=== PATIENT | female | born 1940 | race Caucasian/White ===

== ENCOUNTER 2016-12-04 19:27 | Inpatient (IN) | payer MEDICARE, OTHER ==
[~2016-12-04] VITALS: Ht 160 cm; Wt 77.4 kg
[~2016-12-04 19:27] MED LIST: ASAEC PO; LEVO125T2 PO; METO25T PO; NITR0.4T SL; TOPR25T PO; ZES5 PO
[2016-12-04 19:32] VITALS: BP 138/65; PULSE 67; RESP 18; O2SAT 96
[2016-12-04 20:22] LABS: BASOPHILS % (AUTO) 1.2 % (0-3); EOSINOPHILS % (AUTO) 0.2 % (0-5); Mean Corpuscular Hemoglobin 29.9 pg (27.0-35.0); Mean Corpuscular Volume 95.5 fL (81-100); NEUTROPHILS % (AUTO) 46.4 % (40-74); Platelet Count 173 bil/L (150-400)
--- NOTE | 2016-12-04 20:36 | ED.REPORT ---
HPI-Dyspnea / Wheezing Date of Service Dec 04, 2016 ED Provider: Taurus Coelho DO Pt is a 76 y.o. female with a hx of A-fin and HTN who presents to the ED from c/o SOB onset yesterday. Per pt was 87% on room air. Pt reports associated mild chest pain. She denies fever, chills, nausea, vomiting, and diarrhea. She reports that she is a current smoker. She denies a hx of COPD. Pt reports taking ASA daily. Nursing Notes Stated Complaint: SHORT OF BREATH Chief Complaint: Respiratory Complaints Nursing Notes Reviewed: Yes Allergies: Coded Allergies: Sulfa (Sulfonamide Antibiotics) (Verified Allergy, Severe, Anaphylaxis, 01/04/16) Scheduled Aspirin (Aspirin) 325 Mg Tablet 325 MG PO DAILY Atenolol (Atenolol) 25 Mg Tablet 25 MG PO QAM Atenolol (Atenolol) 25 Mg Tablet 50 MG PO HS Levothyroxine (Levothyroxine) 100 Mcg Tablet 100 MCG PO QAM Morphine Sulfate ER (MS Contin) 30 Mg Tablet.er 30 MG PO TID Nicotine 21 mg/24 hr Patch (Nicotine 21 mg/24 hr Patch) 1 Each Patch.dysq 1 PATCH TRANSDERM DAILY Scheduled PRN Nitroglycerin SL (Nitroglycerin SL) 0.4 Mg Tab.subl 0.4 MG SL Q5MIN PRN PRN For Chest Pain General Time Seen by MD: 20:35 Chief Complaint Shortness of breath Hx Obtained From: Patient Arrived By: Walk-in Sudden in Onset?: Yes Onset Occurred: Yesterday Symptom Duration: Since onset Location: : Chest left: Chest right Quality: Painful Severity: Current: Mild Past Medical History Past Medical History Spinal Stenosis Afib HTN Mitral Valve Prolapse Reports: Hypertension Reports: Atrial fibrillation, Thyroid disease Past Surgical History Breast biopsy Reports: Hysterectomy, Tonsillectomy Family History Reports: Diabetes mellitus, Stroke Smoking History Current Every Day Smoker Social History Alcohol Use: Denies alcohol use Drug Use: Denies drug use Other Social History: Good social support, , Local resident Ambulatory Status Independent Review of Systems Constitutional: Denies: Chills, Fever Respiratory: Reports: Shortness of breath Cardiovascular: Reports: Chest pain Complete sys rev & neg: except as marked. GI: Denies: Diarrhea, Nausea, Vomiting Physical Exam Initial Vital Signs Vital Signs (First) Date Time Temp Pulse Resp B/P Pulse Ox O2 Delivery O2 Flow Rate FiO2 12/04/16 19:32 37.5 67 18 138/65 96 Nasal Cannula 2 Initial VS: Reviewed Head / Eyes: Atraumatic, Normocephalic Abdomen / GI: No distention Extremities: Vascular intact, Neuro intact Skin: Warm, Dry, No cyanosis Neurologic: Alert, Oriented, Nonfocal Psychiatric: Mood/affect normal, Behavior normal, Normal thought content General/Constitutional: Awake, Alert, Well appearing, Well hydrated, Not toxic appearing Neck: Atraumatic Respiratory / Chest: Atraumatic Resp Distress / Stridor: Positive: Resp distress mild Coarse wheezes Poor air intake Hypoxic 92% on 2L Cardiovascular: Heart rate NL, Peripheral circulation NL Trace edema left lower extremity Good perfusion Interpretation & Diagnostics Lab Results Interpretation Result Diagram: 12/04/16200412/04/162004 Test 12/04/16 20:05 White Blood Count 4.9th/mm3 (3.8-10.1) Red Blood Count 4.71mil/mm3 (3.90-5.20) Hemoglobin 14.1g/dL (12.0-15.6) Hematocrit 45.0% (35.0-46.0) Mean Corpuscular Volume 95.5fL (81-100) Mean Corpuscular Hemoglobin 29.9pg (27.0-35.0) Mean Corpuscular Hemoglobin Concent 31.3% (32.0-37.0) Red Cell Distribution Width 14.5% (12.3-15.4) Platelet Count 173bil/L (150-400) Neutrophils (%) (Auto) 46.4% (40-74) Lymphocytes (%) (Auto) 36.0% (14-46) Monocytes (%) (Auto) 16.0% (4-12) Eosinophils (%) (Auto) 0.2% (0-5) Basophils (%) (Auto) 1.2% (0-3) Hold Purple Top Tube Received (Received) D-Dimer 3.0mg/L (<0.50) Hold Blue Top Tube Received (Received) Hold Urine Received (Received) Sodium Level 139mEq/L (134-144) Potassium Level 4.7mEq/L (3.5-5.2) Chloride Level 101mEq/L (97-108) Carbon Dioxide Level 23mmol/L (18-29) Blood Urea Nitrogen 21mg/dL (8-27) Creatinine 1.14mg/dL (0.57-1.00) Estimat Glomerular Filtration Rate 67mL/min (>59) Glucose Level 108mg/dL (60-99) Calcium Level 8.8mg/dL (8.5-10.1) Magnesium Level 2.3mg/dL (1.6-2.6) Total Bilirubin 0.2mg/dL (0.0-1.2) Aspartate Amino Transf (AST/SGOT) 25U/L (0-50) Alanine Aminotransferase (ALT/SGPT) 15U/L (0-32) Alkaline Phosphatase 109U/L (25-165) Troponin T < 0.010ug/L (0.0-0.011) Pro-B-Type Natriuretic Peptide 1858pg/mL (0-738) Total Protein 7.5g/dL (6.4-8.4) Albumin 3.9g/dL (3.4-5.0) Procalcitonin 0.11ng/mL (0.00-0.08) Hold [place] Top Tube Received (Received) Hold Jacinto Top Tube Received (Received) ECG Interpretation ECG Interpretation: PVC No acute ST changes Time: 20:39 Interpreted by: ED physician Normal ECG Interpretation: Normal rate (61), Normal sinus rhythm X-Ray Chest Interpretation Chest Xray Interpretation: IMPRESSION: Acute disease is not appreciated. No change is seen in the chest since previous x-ray of 01/04/16. Dictated by: Natanael Laureano M.D. on 12/04/2016 at 19:08 Approved by: Natanael Laureano M.D. on 12/04/2016 at 19:09 CT Chest Interpretation IMPRESSION: No acute changes are seen in the lungs. No evidence for pulmonary embolus is seen. No acute abnormality seen of the aorta or great vessels. Dictated by: Natanael Laureano M.D. on 12/04/2016 at 21:50 Approved by: Natanael Laureano M.D. on 12/04/2016 at 21:54 Re-Eval/Medical Decision Med Decision/Clinical Course 76-year-old chain-smoker presents in moderate respiratory distress with diffuse expiratory wheeze. Pulmonary emboli was ruled out. Pneumonia seemed unlikely but she is coughing. I gave her Rocephin steroids and nebs. She was still requiring supplemental oxygen so she will be admitted to the hospital. Re-Evaluation/Progress : Time of Eval: 22:46 Re-Evaluation/Progress Note: Pt rechecked. Discussed plan for admit, pt understands and agrees with plan. Consultation : Referral / Consult Name: Paul Lopez MD Consulted With: Hospitalist Call Returned at: 22:42 Grinder Gear: Will see patient, Agrees with eval, Agrees with plan, Accepts admit Note: Discussed pt condition. Accepts admit Discharge & Departure Impression: Primary Impression: Respiratory distress Additional Impressions: Bronchospasm Acute exacerbation of chronic obstructive pulmonary disease (COPD) Disposition: ADMITTED TO HOSPITAL Discharge Condition All VS Reviewed: Yes Condition: Improved Referrals: Mio Gary MD (PCP) Rex Attestation Portions of this note were transcribed by Jane Brooks. I, Dr. Coelho personally performed the history, physical exam and medical decision-making; I reviewed and confirmed the accuracy of the information in the transcribed note. Signed by : Rex Lilly, 12/04/16 and 2336. copies to: Mio Gary MD, Todd P DO Dec 04, 2016 20:36 JANE BROOKS Dec 04, 2016 20:51
[2016-12-04] MEDS ORDERED: MethylprednisoLONE Sodium Succinate 62.5 mg/mL 2 mL Inj IVPUSH ONE (20:40)
[2016-12-04] MEDS ORDERED: Albuterol-Ipratropium 3 mL Inhalation Solution NEB ONE (20:40)
[2016-12-04 20:51] LABS: Magnesium 2.3 mg/dL (1.6-2.6)
[2016-12-04 21:00] LABS: TROPONIN T < 0.010 ug/L (0.0-0.011)
[2016-12-04 21:03] VITALS: BP 168/71; PULSE 73; RESP 16; O2SAT 93
[2016-12-04 21:23] VITALS: PULSE 60; RESP 20; O2SAT 96
--- NOTE | 2016-12-04 21:55 | DRSVH ---
PROCEDURE: CT ANGIO CHEST PULMONARY EMBOLISM ([id number]) INDICATIONS: hypoxia, dyspnea, elevated ddimer, normal xray TECHNIQUE: After the administration of intravenous contrast, 2 mm thick sections acquired from the pulmonary api jazmin to the posterior costophrenic angles. 3-dimensional maximum intensity projection (MIP) coronal a nd sagittal reformats were then acquired through the thorax. For radiation dose reduction, the follo wing was used: automated exposure control, adjustment of mA and/or kV according to patient size. COMPARISON: [facility], , XR CHEST 2VW, 12/04/2016, 18:39. FINDINGS: Image quality: Good Pulmonary arteries: Pulmonary arteries are normal in size, and demonstrate no intraluminal filling d efects to suggest central pulmonary embolism. Lungs and pleura: Lungs are clear. No pleural effusions or pneumothorax. Central and peripheral ai rways are patent. Mediastinum: Heart size is normal, without pericardial effusion. No mediastinal or hilar adenopathy . Thoracic aorta is normal in caliber and enhancement. Esophagus is normal in caliber, without hiat al hernia. Bones and chest wall: No suspicious bony lesions. Ribs and thoracic spine appear intact throughout. Thyroid gland is within normal limits.. No axillary or supraclavicular adenopathy. Abdomen: Visualized upper abdominal solid organs appear normal in the early arterial phase of enhanc ement. IMPRESSION: No acute changes are seen in the lungs. No evidence for pulmonary embolus is seen. No acute abnormality seen of the aorta or great vessels. Dictated by: Natanael Laureano M.D. on 12/04/2016 at 21:50 Approved by: Natanael Laureano M.D. on 12/04/2016 at 21:54
[2016-12-04] MEDS ORDERED: cefTRIAXone Inj 2,000 MG in Dextrose 5% Minibag Plus 50 ML IV ONE (22:05)
[2016-12-04] MEDS ORDERED: Polyethylene Glycol (PEG) 17 Gm Powder PO PRN (22:50)
[2016-12-04] MEDS ORDERED: Ondansetron 2 mg/mL 2 mL Inj IVPUSH PRN (22:50)
[2016-12-04] MEDS ORDERED: Alum-Mag Hydrox-Simeth 30 mL Suspension PO PRN (22:50)
[2016-12-04 23:01] VITALS: BP 150/66; PULSE 78; RESP 16; O2SAT 92
[2016-12-04] MEDS ORDERED: ATEN25TA PO ×2 (23:16)
[2016-12-04] MEDS ORDERED: MS30TCR PO (23:16)
[2016-12-04] MEDS ORDERED: ASPI325T32 PO (23:16)
[2016-12-04] MEDS ORDERED: LEVO100T6 PO (23:16)
[2016-12-04] MEDS ORDERED: NITR0.4T6 SL (23:17)
[2016-12-04] MEDS ORDERED: NICO1PAT16 TRANSDERM (23:18)
[2016-12-05] VITALS (14 sets, daily range): BP systolic 120–170; BP diastolic 61–98; PULSE 53–92; RESP 17–21; O2SAT 89–93
[2016-12-05] MEDS: Albuterol-Ipratropium 3 mL Inhalation Solution NEB SCH ×6 (00:30→20:01)
--- NOTE | 2016-12-05 01:23 | PCM.HPMED ---
Subjective Date of Service Dec 04, 2016 Primary Provider: Admitting Physician: Primary Care Physician: Mio Gary MD Attending Physician: Admit Status: From the Emergency Department, Full Admit, Remote Telemetry Chief Complaint: Acute shortness of breathe History of Present Illness: Umm Ortega is a 76 y.o. female with Paroxysmal Atrial Fibrillation, Hypothyroid and Hypertension who presents to [facility] Emergency department from Urgent Care with complaints of shortness of breathe Patient reported the shortness of breathe started 2 days ago. Described as difficulty inhaling and pushing air out. Not much difference with movement ( constant) but associated with a dry cough with pleuritic chest pain. Denies any fever or chills. No sick contacts or travel. At the Urgent Care today: 87% on room air. She is a current smoker she does not have a diagnosis of COPD. She had a Pulmonary function test that showed interstitial lung disease Case discussed with Dr Coelho, plan to admit due to persistent symptoms. Neb treatment and Solu-Medrol IV given Review of Systems: Pertinent positives as noted in HPI. All other systems were reviewed and are negative Allergies Coded Allergies: Sulfa (Sulfonamide Antibiotics) (Verified Allergy, Severe, Anaphylaxis, 01/04/16) Home Medications From Tayo Corey. [id number] 1940 12/04/2016 05:50 PM 10/01 aspirin 325 mg tablet take 1 tablet (325MG) by oral route every day atenolol 25 mg tablet Take two tablets (50 mg) in the AM and one tablet (25 mg) in the PM. This medication replaces metoprolol coenzyme Q10 (ubiquinol) 100 mg capsule Fish Oil 720 mg-1,200 mg capsule liquid formula hydrocodone 5 mg-acetaminophen 325 mg tablet take 1 tablet by oral route every 6 hours as needed for pain MS Contin 30 mg tablet,extended release take 1 tablet (30MG) by oral route three times a day MS Contin 30 mg tablet,extended release take 1 tablet (30MG) by oral route three times a day Synthroid 100 mcg tablet take 1 tablet by oral route every day Ventolin HFA 90 mcg/actuation aerosol inhaler inhale 2 puff by inhalation route every 4 - 6 hours as needed PMH Hypertension. Hypothyroidism. Lumbar spinal stenosis Hypertension Paroxysmal atrial fibrillation Carotid bruit Interstitial lung disease Chronic pain syndrome on narcotics . Surgical History Cardiac cath 2012 Hysterectomy. Benign breast tumor removal. Tonsillectomy Family History Father had Stroke and Hypertension Mother had Diabetes and Dementia Social History Hx Alcohol Use: Yes (occasional) Hx Substance Use: No Hx Tobacco Use: Yes (40 pack-yr history) Smoking Status: Current Every Day Smoker Exam Vital Signs Vital Sign - Last Date Time Temp Pulse Resp B/P Pulse Ox O2 Delivery O2 Flow Rate FiO2 12/04/16 21:23 60 20 96 Nasal Cannula 2 12/04/16 21:03 168/71 12/04/16 19:32 37.5 Exam General: Alert, Oriented X3, Cooperative, No acute Distress Eyes: PERRLA, Scleral Anicteric Mouth: Mouth Normal, Mucous Membranes Moist/[place] Neck: Supple, no Thyromegaly, trachea central. Chest & Lungs: Clear to auscultation & percussion, No adventitious breath sounds, no crackles, mild wheeze Cardiovascular: Normal S1, Normal S2, No Murmurs/Rubs/Gallops, Regular Rate/ Rhythm, (No JVD, no peripheral edema) Pulses: Radial (present and equal), Dorsalis Pedi (present and equal) Abdomen: Soft, Non-tender, Non-distended, Normoactive bowel tones. Musculoskeletal: Unremarkable. Normal range of motion, no swollen or erythematous joints Extremities: No edema, no cyanosis, no clubbing. Skin: No rashes. Warm and dry, no erythematous areas Neurological: Grossly neurologically intact, Normal Speech, Sensation Intact Lymphatic: Lymph nodes Cervical and Axillary not palpable. Lab and Diagnostics Labs Laboratory Tests Test 12/04/16 20:05 White Blood Count 4.9th/mm3 (3.8-10.1) Red Blood Count 4.71mil/mm3 (3.90-5.20) Hemoglobin 14.1g/dL (12.0-15.6) Hematocrit 45.0% (35.0-46.0) Mean Corpuscular Volume 95.5fL (81-100) Mean Corpuscular Hemoglobin 29.9pg (27.0-35.0) Mean Corpuscular Hemoglobin Concent 31.3% (32.0-37.0) Red Cell Distribution Width 14.5% (12.3-15.4) Platelet Count 173bil/L (150-400) Neutrophils (%) (Auto) 46.4% (40-74) Lymphocytes (%) (Auto) 36.0% (14-46) Monocytes (%) (Auto) 16.0% (4-12) Eosinophils (%) (Auto) 0.2% (0-5) Basophils (%) (Auto) 1.2% (0-3) Hold Purple Top Tube Received (Received) D-Dimer 3.0mg/L (<0.50) Hold Blue Top Tube Received (Received) Hold Urine Received (Received) Sodium Level 139mEq/L (134-144) Potassium Level 4.7mEq/L (3.5-5.2) Chloride Level 101mEq/L (97-108) Carbon Dioxide Level 23mmol/L (18-29) Blood Urea Nitrogen 21mg/dL (8-27) Creatinine 1.14mg/dL (0.57-1.00) Estimat Glomerular Filtration Rate 67mL/min (>59) Glucose Level 108mg/dL (60-99) Calcium Level 8.8mg/dL (8.5-10.1) Magnesium Level 2.3mg/dL (1.6-2.6) Total Bilirubin 0.2mg/dL (0.0-1.2) Aspartate Amino Transf (AST/SGOT) 25U/L (0-50) Alanine Aminotransferase (ALT/SGPT) 15U/L (0-32) Alkaline Phosphatase 109U/L (25-165) Troponin T < 0.010ug/L (0.0-0.011) Pro-B-Type Natriuretic Peptide 1858pg/mL (0-738) Total Protein 7.5g/dL (6.4-8.4) Albumin 3.9g/dL (3.4-5.0) Hold [place] Top Tube Received (Received) Hold Jacinto Top Tube Received (Received) Result Diagram: 12/04/16200412/04/162004 X-Rays, CTs and MRIs CT ANGIO CHEST PULMONARY EMBOLISM 12/04 IMPRESSION: No acute changes are seen in the lungs. No evidence for pulmonary embolus is seen. No acute abnormality seen of the aorta or great vessels. Dictated by: Natanael Laureano M.D. on 12/04/2016 at 21:50 Approved by: Natanael Laureano M.D. on 12/04/2016 at 21:54 Assessment & Plan Umm Ortega is a 76 y.o. female with Paroxysmal Atrial Fibrillation, Hypothyroid and Hypertension who presents to [facility] Emergency department from Urgent Care with complaints of shortness of breathe 1. Acute dyspnea due to Possible COPD exacerbation. Present on admission. Under therapy Likely due to a Viral respiratory infection - continue oxygen supplementation - scheduled DuoNeb treatments - steroids tapered to Prednisone 40 mg daily - Azithromycin 500 mg PO daily as procalcitonin elevated - recommend a repeat Pulmonary function test as outpatient 2. Hypertension Presumed stable but currently elevated - continue Atenolol 50 mg AM then 25 mg PM 3. Hypothyroidism - continue Synthroid 100 mcg daily 4. Nicotine dependence Cessation discussed and encouraged - Nicotine patch will be ordered on request 5. Chronic pain syndrome with narcotic dependence - continuing Morphine 30 mg tid and Hydrocodone/APAP prn - Acetaminophen as needed for mild pain/fever/headache - Bowel regimen as needed - Antiemetic as needed Patient admitted under inpatient status with expected length of stay > 2 midnights for severity of present symptoms, complexities of treatment plan and risk for adverse event . Resuscitation Status: CPR: Attempt Resuscitation Paul Lopez MD Dec 04, 2016 22:52
[2016-12-05] MEDS: Heparin 5,000 Unit/mL Inj SUBQ SCH ×3 (01:41→17:13)
[2016-12-05] MEDS: HYDROcodone-APAP 5-325 mg Tablet PO PRN ×4 (01:42→20:48)
--- NOTE | 2016-12-05 06:37 | NUR ---
Admit Admitted to 3028 from ED via stretcher. Able to ambulate on arrival. Strong gait noted but reports of mild dizziness. Tele SR w/o CP. Denies SOB @ rest on 2L NC but reports BOYD for two days. IV SL. Tolerating PO intake without any noted issues. Toileting without any complaints of incontinence, constipation or any other issues. c/o chronic back pain x1. Prn [place] administered and effective. Skin intact with bruising noted. Personal belongings at bedside per patient request. Oriented to call light use with return demonstration.
[2016-12-05] MEDS: predniSONE 20 mg Tablet PO SCH (08:54)
--- NOTE | 2016-12-05 09:32 | NUR ---
Home medications Pt took a few home medications this am she brought with her. I have spoke with her about this and will be in soon and take home meds with him when he leaves today. She took medications she was scheduled to receive this am.
--- NOTE | 2016-12-05 10:32 | PCM.PNMED ---
Subjective Date of Service Dec 05, 2016 Subjective - Pt seen and examined this morning. No acute events over night. - She is AAO x 3 - States that she is doing better then yesterday. Exam Vital Signs Vital Sign - Last Date Time Temp Pulse Resp B/P Pulse Ox O2 Delivery O2 Flow Rate FiO2 12/05/16 09:03 36.6 60 20 135/71 92 Nasal Cannula 2.00 Intake and Output 12/04/16 12/04/16 12/05/16 Cumulative From/Thru 15:00 23:00 07:00 12/04/16 19:32 - 12/05/16 06:57 Intake Total 250 ml 250 ml Balance 250 ml 250 ml Intake Oral 250 ml 250 ml # Voids 1 1 # Bowel Movements 0 0 Exam General: Alert, Oriented X3, Cooperative, No acute Distress Eyes: PERRLA, Scleral Anicteric Mouth: Mouth Normal, Mucous Membranes Moist/[place] Neck: Supple, no Thyromegaly, trachea central. Chest & Lungs: Clear to auscultation & percussion, No adventitious breath sounds, no crackles, mild wheeze Cardiovascular: Normal S1, Normal S2, No Murmurs/Rubs/Gallops, Regular Rate/ Rhythm, (No JVD, no peripheral edema) Pulses: Radial (present and equal), Dorsalis Pedi (present and equal) Abdomen: Soft, Non-tender, Non-distended, Normoactive bowel tones. Musculoskeletal: Unremarkable. Normal range of motion, no swollen or erythematous joints Extremities: No edema, no cyanosis, no clubbing. Skin: No rashes. Warm and dry, no erythematous areas Neurological: Grossly neurologically intact, Normal Speech, Sensation Intact Lymphatic: Lymph nodes Cervical and Axillary not palpable. IVs and Medications Medications Reviewed: Medications were reviewed in detail Lab and Diagnostics Result Diagram: 12/04/16200412/04/162004 X-Rays, CTs and MRIs CT ANGIO CHEST PULMONARY EMBOLISM 12/04 IMPRESSION: No acute changes are seen in the lungs. No evidence for pulmonary embolus is seen. No acute abnormality seen of the aorta or great vessels. Dictated by: Natanael Luareano M.D. on 12/04/2016 at 21:50 Approved by: Natanael Laureano M.D. on 12/04/2016 at 21:54 Assessment & Plan Umm Ortega is a 76 y.o. female with Paroxysmal Atrial Fibrillation, Hypothyroid and Hypertension who presents to [facility] Emergency department from Urgent Care with complaints of shortness of breathe 1. Acute dyspnea due to Possible COPD exacerbation. Present on admission. Under therapy Likely due to a Viral respiratory infection - continue oxygen supplementation - scheduled DuoNeb treatments - steroids tapered to Prednisone 40 mg daily - Azithromycin 500 mg PO daily as procalcitonin elevated - recommend a repeat Pulmonary function test as outpatient 2. Hypertension -controlled - continue Atenolol 50 mg AM then 25 mg PM 3. Hypothyroidism - continue Synthroid 100 mcg daily 4. Nicotine dependence Cessation discussed and encouraged - Nicotine patch will be ordered on request 5. Chronic pain syndrome with narcotic dependence - continuing Morphine 30 mg tid and Hydrocodone/APAP prn - Acetaminophen as needed for mild pain/fever/headache - Bowel regimen as needed - Antiemetic as needed Pain Evaluation: Adequate Pain Control Resuscitation Status: CPR: Attempt Resuscitation Devendra Garcia MD Dec 05, 2016 10:31
[2016-12-05] MEDS ORDERED: Morphine ER 30 mg (MS Contin) Tablet PO ONE (18:00)
--- NOTE | 2016-12-05 18:45 | NUR ---
PRN BP med Per Dr Garcia use PRN BP medication on EMAR if systolic >170 or diastolic >100.
[2016-12-06] VITALS (9 sets, daily range): BP systolic 141–173; BP diastolic 64–77; PULSE 63–77; RESP 18–20; O2SAT 85–96
[2016-12-06] MEDS: Albuterol-Ipratropium 3 mL Inhalation Solution NEB SCH ×6 (00:30→20:35)
[2016-12-06] MEDS: Heparin 5,000 Unit/mL Inj SUBQ SCH ×3 (00:30→16:15)
[2016-12-06 06:24] LABS: BASOPHILS % (AUTO) 0.2 % (0-3); EOSINOPHILS % (AUTO) 0 % (0-5); MONOCYTES % (AUTO) 10.1 % (4-12); Mean Corpuscular Hemoglobin 29.9 pg (27.0-35.0); Mean Corpuscular Volume 95.6 fL (81-100); NEUTROPHILS % (AUTO) 62.9 % (40-74); Platelet Count 181 bil/L (150-400)
[2016-12-06] MEDS: predniSONE 20 mg Tablet PO SCH (08:17)
[2016-12-06] MEDS: Morphine ER 30 mg (MS Contin) Tablet PO SCH ×3 (08:17→20:18)
--- NOTE | 2016-12-06 09:00 | NUR ---
MANOJ signed. JUSTICE Farias
--- NOTE | 2016-12-06 09:26 | PCM.PNMED ---
Subjective Date of Service Dec 06, 2016 Subjective - No acute events over night. - c/o low back pain which is chronic due to spinal stenosis. on Morphine Exam Vital Signs Vital Sign - Last Date Time Temp Pulse Resp B/P Pulse Ox O2 Delivery O2 Flow Rate FiO2 12/06/16 08:17 Supplement Oxygen 12/06/16 08:08 65 18 89 12/06/16 05:20 36.8 160/73 12/05/16 16:52 2.00 Intake and Output 12/05/16 12/05/16 12/06/16 Cumulative From/Thru 15:00 23:00 07:00 12/04/16 19:32 - 12/06/16 06:38 Intake Total 772 ml 200 ml 1222 ml Output Total 950 ml 950 ml Balance -178 ml 200 ml 272 ml Intake Oral 772 ml 200 ml 1222 ml Output Urine Total 950 ml 950 ml # Voids 4 5 # Bowel Movements 0 Exam General: Alert, Oriented X3, Cooperative, No acute Distress Eyes: PERRLA, Scleral Anicteric Mouth: Mouth Normal, Mucous Membranes Moist/[place] Neck: Supple, no Thyromegaly, trachea central. Chest & Lungs: Clear to auscultation & percussion, No adventitious breath sounds, no crackles, mild wheeze Cardiovascular: Normal S1, Normal S2, No Murmurs/Rubs/Gallops, Regular Rate/ Rhythm, (No JVD, no peripheral edema) Pulses: Radial (present and equal), Dorsalis Pedi (present and equal) Abdomen: Soft, Non-tender, Non-distended, Normoactive bowel tones. Musculoskeletal: Unremarkable. Normal range of motion, no swollen or erythematous joints Extremities: No edema, no cyanosis, no clubbing. Skin: No rashes. Warm and dry, no erythematous areas Neurological: Grossly neurologically intact, Normal Speech, Sensation Intact Lymphatic: Lymph nodes Cervical and Axillary not palpable. Lab and Diagnostics Result Diagram: 12/06/16 0550 12/06/16 0550 X-Rays, CTs and MRIs CT ANGIO CHEST PULMONARY EMBOLISM 12/04 IMPRESSION: No acute changes are seen in the lungs. No evidence for pulmonary embolus is seen. No acute abnormality seen of the aorta or great vessels. Dictated by: Natanael aLureano M.D. on 12/04/2016 at 21:50 Approved by: Natanael Laureano M.D. on 12/04/2016 at 21:54 Assessment & Plan Umm Ortega is a 76 y.o. female with Paroxysmal Atrial Fibrillation, Hypothyroid and Hypertension who presents to [facility] Emergency department from Urgent Care with complaints of shortness of breathe 1. Acute hypoxic respiratory failure likely due to COPD exacerbation. - possible viral infection - continue oxygen supplementation - scheduled DuoNeb treatments - steroids tapered to Prednisone 40 mg daily - Azithromycin 500 mg PO daily Day x 2 - recommend a repeat Pulmonary function test as outpatient 2. Hypertension -controlled - continue Atenolol 50 mg AM then 25 mg PM 3. Hypothyroidism - continue Synthroid 100 mcg daily 4. Nicotine dependence - Cessation discussed and encouraged - Nicotine patch 5. Chronic pain syndrome with narcotic dependence - continuing Morphine 30 mg tid and Hydrocodone/APAP prn - Acetaminophen as needed for mild pain/fever/headache - Bowel regimen as needed - Antiemetic as needed Resuscitation Status: CPR: Attempt Resuscitation Devendra Garcia MD Dec 06, 2016 09:26 Devendra Garcia MD Dec 06, 2016 09:26
--- NOTE | 2016-12-06 12:07 | NUR ---
Social Work-initial assessment/ readiness for discharge: Data:See initial assessment. Pt is a 76 y/o female who was admitted on 12/04/16 for respiratory distress per H&P. Pt's insurance is [employer] and PCP is Mio Gary MD. EMR reviewed. Pt's readmission score is 4-high risk. SW met with pt at bedside, SW role explained. Pt is alert and oriented x3. Pt resides at home with her where she remains independent with ADLs. Pt does drive and does not use any DME. Pt has no HH or SNF history. Pt has no terminal carman care or VA benefits. SW discussed DPOA/ advanced directive,pt states she has never completed this, SW provided pt with a copy. Per RN notes, pt has been up independent in her room- no PT needs indicated. Pt's to provide transport home at discharge. SW provided phone number and plan on white board in room. No anticipated discharge needs. SW will continue to follow if needs arise. Assessment:Pt who is independent at baseline. Plan:Pt to discharge home when medically stable via POV. No anticipated discharge needs. SW will continue to follow if needs arise. JUSTICE Farias Addendum: 12/06/16 at 1211 by LUISA VILLAVICENCIO Amended: Links added.
[2016-12-06] MEDS: HYDROcodone-APAP 5-325 mg Tablet PO PRN (12:44)
[2016-12-07] VITALS (8 sets, daily range): BP systolic 135–167; BP diastolic 65–85; PULSE 56–67; RESP 18–20; O2SAT 90–98
[2016-12-07] MEDS: Albuterol-Ipratropium 3 mL Inhalation Solution NEB SCH ×6 (00:27→20:55)
[2016-12-07] MEDS: Heparin 5,000 Unit/mL Inj SUBQ SCH ×3 (00:30→16:31)
--- NOTE | 2016-12-07 06:23 | NUR ---
Anxiety Rather anxious about new COPD diagnosis and the need to quit smoking. Extended periods of 1:1 provided with patient to address her concerns, answer questions and provide advice to help with smoking cessation which helped to resolve anxiety.
[2016-12-07] MEDS: Morphine ER 30 mg (MS Contin) Tablet PO SCH ×3 (07:32→20:19)
[2016-12-07] MEDS: predniSONE 20 mg Tablet PO SCH (07:33)
[2016-12-07 08:05] LABS: BASOPHILS % (AUTO) 0.2 % (0-3); EOSINOPHILS % (AUTO) 0 % (0-5); Mean Corpuscular Hemoglobin 29.8 pg (27.0-35.0); Mean Corpuscular Volume 96.2 fL (81-100); NEUTROPHILS % (AUTO) 50.9 % (40-74); Platelet Count 197 bil/L (150-400)
[2016-12-07] MEDS: HYDROcodone-APAP 5-325 mg Tablet PO PRN (09:20)
--- NOTE | 2016-12-07 10:33 | PCM.PNMED ---
Subjective Date of Service Dec 07, 2016 Subjective - No acute events over night. c/o mild SOB which is improving. - Also reports low back pain which is chronic due to spinal stenosis. She is on standing po morphine Exam Vital Signs Vital Sign - Last Date Time Temp Pulse Resp B/P Pulse Ox O2 Delivery O2 Flow Rate FiO2 12/07/16 09:25 Supplement Oxygen 12/07/16 08:44 64 18 93 12/07/16 06:17 36.6 135/65 12/06/16 11:51 1.00 Intake and Output 12/06/16 12/06/16 12/07/16 Cumulative From/Thru 15:00 23:00 07:00 12/04/16 19:32 - 12/07/16 06:40 Intake Total 586 ml 400 ml 2208 ml Output Total 400 ml 600 ml 1950 ml Balance 186 ml -200 ml 258 ml Intake Oral 586 ml 400 ml 2208 ml Output Urine Total 400 ml 600 ml 1950 ml # Voids 5 # Bowel Movements 1 1 Exam General: Alert, Oriented X3, Cooperative, No acute Distress Eyes: PERRLA, Scleral Anicteric Mouth: Mouth Normal, Mucous Membranes Moist/[place] Neck: Supple, no Thyromegaly, trachea central. Chest & Lungs: Clear to auscultation & percussion, mild wheeze, decrease breath sound at bilateral bases Cardiovascular: Normal S1, Normal S2, No Murmurs/Rubs/Gallops, Regular Rate/ Rhythm, (No JVD, no peripheral edema) Pulses: Radial (present and equal), Dorsalis Pedi (present and equal) Abdomen: Soft, Non-tender, Non-distended, Normoactive bowel tones. Musculoskeletal: Unremarkable. Normal range of motion, no swollen or erythematous joints Extremities: No edema, no cyanosis, no clubbing. Skin: No rashes. Warm and dry, no erythematous areas Neurological: Grossly neurologically intact, Normal Speech, Sensation Intact Lymphatic: Lymph nodes Cervical and Axillary not palpable. IVs and Medications Medications Reviewed: Medications were reviewed in detail Lab and Diagnostics Result Diagram: 12/07/1662412/07/16624 X-Rays, CTs and MRIs CT ANGIO CHEST PULMONARY EMBOLISM 12/04 IMPRESSION: No acute changes are seen in the lungs. No evidence for pulmonary embolus is seen. No acute abnormality seen of the aorta or great vessels. Dictated by: Natanael Laureano M.D. on 12/04/2016 at 21:50 Approved by: Natanael Laureano M.D. on 12/04/2016 at 21:54 Assessment & Plan Umm Ortega is a 76 y.o. female with Paroxysmal Atrial Fibrillation, Hypothyroid and Hypertension who presents to [facility] Emergency department from Urgent Care with complaints of shortness of breathe 1. Acute hypoxic respiratory failure likely due to COPD exacerbation. - possible viral infection - continue oxygen supplementation - scheduled DuoNeb treatments - steroids tapered to Prednisone 40 mg daily - Azithromycin 500 mg PO daily Day x 3 - recommend a repeat Pulmonary function test as outpatient 2. Hypertension - controlled - continue Atenolol 50 mg AM then 25 mg PM 3. Hypothyroidism - continue Synthroid 100 mcg daily 4. Nicotine dependence - Cessation discussed and encouraged - Nicotine patch 5. Chronic pain syndrome with narcotic dependence - continuing Morphine 30 mg tid and Hydrocodone/APAP prn - Acetaminophen as needed for mild pain/fever/headache - Bowel regimen as needed - Antiemetic as needed Dispo: Likely discharge tomorrow. Resuscitation Status: CPR: Attempt Resuscitation Devendra Garcia MD Dec 07, 2016 10:33
--- NOTE | 2016-12-07 12:26 | NUR ---
ambulating pt ambulated 1 lap on RA. pulse ox stayed between 88-91%. pt states that she was feeling a little light headed toward the end of the walk.
--- NOTE | 2016-12-07 18:35 | NUR ---
COPD info Dr. Garcia wants to make sure the patient is sent home with COPD information and education.
[2016-12-08] MEDS: Heparin 5,000 Unit/mL Inj SUBQ SCH ×2 (00:59→08:30)
[2016-12-08] MEDS: HYDROcodone-APAP 5-325 mg Tablet PO PRN ×2 (01:52→09:22)
[2016-12-08 02:15] VITALS: PULSE 60; RESP 18; O2SAT 98
[2016-12-08] MEDS: Albuterol-Ipratropium 3 mL Inhalation Solution NEB SCH ×4 (02:15→12:41)
[2016-12-08 04:41] VITALS: BP 144/61; PULSE 60; RESP 18; O2SAT 92
--- NOTE | 2016-12-08 05:13 | NUR ---
Pain: Pt c/o generalized pain, medication administered; effective. Pt denied SOB and chest pain. Pt slept most of the night, pleasant and cooperative with care.
[2016-12-08 06:59] LABS: BASOPHILS % (AUTO) 0.2 % (0-3); EOSINOPHILS % (AUTO) 0.2 % (0-5); MONOCYTES % (AUTO) 11.5 % (4-12); Mean Corpuscular Hemoglobin 29.9 pg (27.0-35.0); Mean Corpuscular Volume 94.8 fL (81-100); NEUTROPHILS % (AUTO) 40.1 % (40-74); Platelet Count 198 bil/L (150-400)
[2016-12-08 08:41] VITALS: PULSE 66; RESP 16; O2SAT 90
[2016-12-08] MEDS: predniSONE 20 mg Tablet PO SCH (09:18)
[2016-12-08] MEDS: Morphine ER 30 mg (MS Contin) Tablet PO SCH (09:19)
[2016-12-08] MEDS ORDERED: Albuterol HFA 60 Puff 8 Gm Inhaler INHALATION ONE (11:50)
--- NOTE | 2016-12-08 11:53 | PCM.DIMED ---
Discharge Instructions Date of Service Dec 08, 2016 Dates of Hospitalization Dec 04, 2016 at 23:51 Discharge Diagnosis Discharge Diagnosis COPD exacerbation? Versus acute viral illness Diet Heart Healthy Activity No restrictions Call your provider Shortness of breath Patient Instructions Follow-up Provider: Mio Gary MD Follow-up with PCP in: 1 week Lee Mendieta MD Dec 08, 2016 11:53
[2016-12-08] MEDS ORDERED: NICO1PAT6 TOPICAL (12:03)
[2016-12-08] MEDS ORDERED: PRED-508 PO (12:03)
[2016-12-08] MEDS ORDERED: ZIT250 PO (12:03)
[2016-12-08] MEDS ORDERED: MS30TCR PO (12:03)
[2016-12-08] MEDS ORDERED: NICO2LOZ47 BUCCAL (12:03)
[2016-12-08] MEDS ORDERED: LEVO100T6 PO (12:03)
[2016-12-08] MEDS ORDERED: ATEN25TA PO ×2 (12:03)
[2016-12-08] MEDS ORDERED: ALBU18HF INHALATION (12:03)
--- NOTE | 2016-12-08 12:11 | PCM.DC.MED ---
Discharge Summary Date of Service Dec 08, 2016 Dates of Hospitalization Date of Hospital Admission Dec 04, 2016 at 23:51 Date of Discharge: Dec 08, 2016 Providers: Admitting Physician: Paul Lopez MD Primary Care Physician: Mio Gary MD Attending Physician: Paul Lopez MD Diagnosis at Time of Discharge Diagnosis at Time of Discharge COPD exacerbation Procedures XRay, CTs & MRIs CT ANGIO CHEST PULMONARY EMBOLISM 12/04 IMPRESSION: No acute changes are seen in the lungs. No evidence for pulmonary embolus is seen. No acute abnormality seen of the aorta or great vessels. Dictated by: Natanael Laureano M.D. on 12/04/2016 at 21:50 Approved by: Natanael Laureano M.D. on 12/04/2016 at 21:54 Brief History Umm Ortega is a 76 y.o. female with Paroxysmal Atrial Fibrillation, Hypothyroid and Hypertension who presents to [facility] Emergency department from Urgent Care with complaints of shortness of breathe Patient reported the shortness of breathe started 2 days ago. Described as difficulty inhaling and pushing air out. Not much difference with movement ( constant) but associated with a dry cough with pleuritic chest pain. Denies any fever or chills. No sick contacts or travel. Hospital Course Umm Ortega is a 76 y.o. female with Paroxysmal Atrial Fibrillation, Hypothyroid and Hypertension who presents to [facility] Emergency department from Urgent Care with complaints of shortness of breathe 1. Acute hypoxic respiratory failure likely due to COPD exacerbation. - possible viral infection - oxygen supplementation weaned 12/08 respiratory therapy did ambulatory pulse ox she did not qualify for home O2 - scheduled DuoNeb treatments patient to get albuterol MDI, and some teaching on how to use along with spacer - steroids tapered to Prednisone 40 mg daily to be continued for 5 more days - Azithromycin 500 mg PO daily for 2 more days for a total of 5 or 6 days - recommend a repeat Pulmonary function test as outpatient when she is fully recovered 2. Hypertension - controlled - continue Atenolol 50 mg AM then 25 mg PM, prescribed for the next 3 months 3. Hypothyroidism - continue Synthroid 100 mcg daily, prescribed for the next 3 months 4. Nicotine dependence - Cessation discussed and encouraged - Nicotine patch -Nicotine patches tapering from 21 27 mics prescribed for the next 60 days along with lozenges 5. Chronic pain syndrome with continuous narcotic dependence - continuing Morphine 30 mg tid and Hydrocodone/APAP prn, given prescription for morphine 30 mg 3 times a day #90 for the next month Dispo: Discharging. Exam Vital Signs (Last) Date Time Temp Pulse Resp B/P Pulse Ox O2 Delivery O2 Flow Rate FiO2 12/08/16 09:00 Supplement Oxygen 12/08/16 08:41 66 16 90 12/08/16 04:41 36.7 144/61 12/06/16 11:51 1.00 Exam General: Alert, Oriented X3, Cooperative, No acute Distress obese female lying in bed easily aroused from sleep Eyes: Eyes open, conjunctiva clear, pupils equal, no drainage Neck: Supple, no Thyromegaly, trachea central. Chest & Lungs: Bilateral wheezes/rhonchi particularly expiratory, moving air well with no accessory muscle usage Cardiovascular: Normal S1, Normal S2, No Murmurs/Rubs/Gallops, Regular Rate/ Rhythm, Abdomen: Soft, Non-tender, Non-distended, Normoactive bowel tones. Generous pannus Musculoskeletal: Unremarkable. Normal range of motion, no swollen or erythematous joints Extremities: No edema, no cyanosis, no clubbing. Skin: No rashes. Warm and dry, no erythematous areas Neurological: Grossly neurologically intact, Normal Speech, Sensation Intact Psych: Patient is pleasant and appropriate Test 12/04/16 20:05 12/06/16 05:50 12/08/16 06:25 Hold Purple Top Tube Received (Received) D-Dimer 3.0mg/L (<0.50) Hold Blue Top Tube Received (Received) Hold Urine Received (Received) Magnesium Level 2.3mg/dL (1.6-2.6) Total Bilirubin 0.2mg/dL (0.0-1.2) Aspartate Amino Transf (AST/SGOT) 25U/L (0-50) Alanine Aminotransferase (ALT/SGPT) 15U/L (0-32) Alkaline Phosphatase 109U/L (25-165) Troponin T < 0.010ug/L (0.0-0.011) Pro-B-Type Natriuretic Peptide 1858pg/mL (0-738) Total Protein 7.5g/dL (6.4-8.4) Albumin 3.9g/dL (3.4-5.0) Procalcitonin 0.11ng/mL (0.00-0.08) Hold Everetts Top Tube Received (Received) Hold Jacinto Top Tube Received (Received) Hematology Comments White Blood Count 9.3th/mm3 (3.8-10.1) Red Blood Count 4.22mil/mm3 (3.90-5.20) Hemoglobin 12.6g/dL (12.0-15.6) Hematocrit 40.0% (35.0-46.0) Mean Corpuscular Volume 94.8fL (81-100) Mean Corpuscular Hemoglobin 29.9pg (27.0-35.0) Mean Corpuscular Hemoglobin Concent 31.5% (32.0-37.0) Red Cell Distribution Width 14.7% (12.3-15.4) Platelet Count 198bil/L (150-400) Neutrophils (%) (Auto) 40.1% (40-74) Lymphocytes (%) (Auto) 47.8% (14-46) Monocytes (%) (Auto) 11.5% (4-12) Eosinophils (%) (Auto) 0.2% (0-5) Basophils (%) (Auto) 0.2% (0-3) Sodium Level 142mEq/L (134-144) Potassium Level 4.9mEq/L (3.5-5.2) Chloride Level 103mEq/L (97-108) Carbon Dioxide Level 30mmol/L (18-29) Blood Urea Nitrogen 25mg/dL (8-27) Creatinine 1.09mg/dL (0.57-1.00) Estimat Glomerular Filtration Rate 70mL/min (>59) Glucose Level 81mg/dL (60-99) Calcium Level 8.7mg/dL (8.5-10.1) Discharge Medications Discharge Medications Albuterol Sulfate (Ventolin HFA Inhaler) 200 Puff/18 Gm Inhaler 2 PUFF INHALATION ONCE Prescribed by: KYLE MENDIETA MD Aspirin (Aspirin) 325 Mg Tablet 325 MG PO DAILY (Reported) Atenolol (Atenolol) 25 Mg Tablet 25 MG PO QAM Prescribed by: KYLE MENDIETA MD Atenolol (Atenolol) 25 Mg Tablet 50 MG PO HS Prescribed by: KYLE MENDIETA MD Azithromycin (Zithromax) 250 Mg Tablet 500 MG PO DAILY Prescribed by: KYLE MENDIETA MD Levothyroxine (Levothyroxine) 100 Mcg Tablet 100 MCG PO QAM Prescribed by: KYLE MENDIETA MD Morphine Sulfate ER (MS Contin) 30 Mg Tablet.er 30 MG PO TID Prescribed by: KYLE MENDIETA MD Nicotine 21 mg/24 hr Patch (Nicotine 21 mg/24 hr Patch) 1 Each Patch.td24 1 PATCH TOPICAL Q24H [id number], 14mcg x21d, 7mcg x25d Prescribed by: KYLE MENDIETA MD Prednisone (Deltasone) 20 Mg Tablet 40 MG PO DAILY Prescribed by: KYLE MENDIETA MD As needed Nicotine Polacrilex (Nicorette) 2 Mg Lozenge 4 MG BUCCAL Q4H PRN PRN For Tobacco Withdrawal Prescribed by: KYLE MENDIETA MD Nitroglycerin SL (Nitroglycerin SL) 0.4 Mg Tab.subl 0.4 MG SL Q5MIN PRN PRN For Chest Pain (Reported) Followup Plan Discharge Diet: Heart Healthy Discharge Activity: No restrictions Follow-up Provider: Mio Gary MD Follow-up with PCP in: 1 week Time spent Greater than 30 minutes Kyle Mendieta MD Dec 08, 2016 12:11
[2016-12-08 12:41] VITALS: PULSE 65; RESP 16; O2SAT 92
--- NOTE | 2016-12-08 13:54 | NUR ---
Social Work-discharge: Data:EMR reviewed. Pt is on day 4 of hospitalization for respiratory distress per H&P. Pt is medically stable for discharge today. Pt has been up independent in her room. SW confirmed plan of home no needs with pt. Pt's to provide transport home today. All updated and agreeable to plan. Assessment:Pt who is independent at baseline. Plan:Pt to discharge home today via POV. No discharge needs identified. All updated and agreeable to plan. JUSTICE Farias
--- NOTE | 2016-12-08 14:02 | NUR ---
Discharge Pt was discharged at 1400. Prior to discharge she was given information regarding prescription medication and instructions for follow up care. She confirmed understanding of these instructions. She was given a hard copy of prescription medication to take with her. Her primary care doctor (Dr. Gary) was called by the RN to make an appointment for follow up care. At this time they were unable to schedule her appointment but would be calling her back today to schedule. Pt was notified of this. She left with all of her belongings in her possession. She was taken to the exit by unit staff via wheelchair. Her would be driving her home.
== END 2016-12-08 13:55 | disposition home or self-care (01) | DRG 190 ==
LOC: SED 19:27 → MPC 23:51
PROVIDERS: ADMIT Hospitalist; ATTEND Hospitalist
DX: J44.1 Chronic obstructive pulmonary disease with (acute) exacerbation (principal); J96.21 Acute and chronic respiratory failure with hypoxia; F11.20 Opioid dependence, uncomplicated; F17.210 Nicotine dependence, cigarettes, uncomplicated; Z79.82 Long term (current) use of aspirin; E03.9 Hypothyroidism, unspecified; G89.4 Chronic pain syndrome; I10 Essential (primary) hypertension

== ENCOUNTER 2017-03-13 14:54 | Emergency (ER) | payer OTHER ==
[2017-03-13] VITALS (8 sets, daily range): BP systolic 79–205; BP diastolic 41–76; PULSE 64–87; RESP 16–20; O2SAT 98–100
[~2017-03-13 14:54] MED LIST changes: +ALBU18HF INHALATION; -ASAEC PO; +ASPI325T32 PO; +ATEN25TA PO; +LEVO100T6 PO; -LEVO125T2 PO; -METO25T PO; +MS30TCR PO; +NICO1PAT6 TOPICAL; +NICO2LOZ47 BUCCAL; -NITR0.4T SL; +NITR0.4T6 SL; +PRED-508 PO; +Succinylcholine Chloride 20 mg/mL 5 mL Inj ONE; -TOPR25T PO; -ZES5 PO; +ZIT250 PO
[2017-03-13] MEDS ORDERED: Propofol 10,000 mCg/mL 100 mL Inj ONE ×2 (15:07→16:36)
[2017-03-13] MEDS ORDERED: 0.9% Sodium Chloride 1,000 ML IV ONE (15:08)
[2017-03-13] MEDS ORDERED: Propofol Inj 1,000,000 MCG in IV Premix 1 EACH IV SCH (15:15)
--- NOTE | 2017-03-13 15:17 | ED.REPORT ---
HPI-General Illness Date of Service Mar 13, 2017 ED Provider: Addy Gutierrez MD A 76 year old female with a history of COPD, atrial fibrillation, hypertension, spinal stenosis and mitral valve prolapse is brought to the ED due to sudden onset unresponsiveness. The pt was in Urgent Care for a routine appointment to address visual disturbances when she was found unresponsive in the restroom. Paramedics found the pt bradycardic in the 40's with a blood pressure of 110/70 and a pulse oximetry of 98%. She was given Naloxone prior to arrival in the ED with no response, and was not alert or responsive at any time during transport. In the ED, the pt is tachycardic and is intubated without delay upon arrival. Further history cannot be obtained secondary to pt's condition. Nursing Notes Stated Complaint: ALTERED MENTAL STATUS Chief Complaint: Critical Care/Intubated Nursing Notes Reviewed: Yes Allergies: Coded Allergies: Sulfa (Sulfonamide Antibiotics) (Verified Allergy, Severe, Anaphylaxis, 01/04/16) Scheduled Albuterol Sulfate (Ventolin HFA Inhaler) 200 Puff/18 Gm Inhaler 2 PUFF INHALATION ONCE Aspirin (Aspirin) 325 Mg Tablet 325 MG PO DAILY Atenolol (Atenolol) 25 Mg Tablet 25 MG PO QAM Atenolol (Atenolol) 25 Mg Tablet 50 MG PO HS Azithromycin (Zithromax) 250 Mg Tablet 500 MG PO DAILY Levothyroxine (Levothyroxine) 100 Mcg Tablet 100 MCG PO QAM Morphine Sulfate ER (MS Contin) 30 Mg Tablet.er 30 MG PO TID Nicotine 21 mg/24 hr Patch (Nicotine 21 mg/24 hr Patch) 1 Each Patch.td24 1 PATCH TOPICAL Q24H [id number], 14mcg x21d, 7mcg x25d Prednisone (Deltasone) 20 Mg Tablet 40 MG PO DAILY Scheduled PRN Nicotine Polacrilex (Nicorette) 2 Mg Lozenge 4 MG BUCCAL Q4H PRN PRN For Tobacco Withdrawal Nitroglycerin SL (Nitroglycerin SL) 0.4 Mg Tab.subl 0.4 MG SL Q5MIN PRN PRN For Chest Pain General Time Seen by MD: 15:01 Chief Complaint Other (Unresponsive) Hx Obtained From: EMS Arrived By: Ambulance Sudden in Onset?: Yes Onset Occurred: 16 - 30 minutes ago Symptom Duration: Since onset Recent Healthcare: Recent doctor visit, Recent hospitalization Similar Sx Previous: No Past Medical History Past Medical History Spinal Stenosis Afib Mitral Valve Prolapse Reports: COPD, Hypertension Reports: Atrial fibrillation, Thyroid disease Past Surgical History Breast biopsy Reports: Hysterectomy, Tonsillectomy Family History Reports: Diabetes mellitus, Stroke Smoking History Current Every Day Smoker Social History Alcohol Use: Denies alcohol use Drug Use: Denies drug use Other Social History: Good social support, , Local resident Ambulatory Status Independent Review of Systems Unable to Obtain ROS Patient condition Physical Exam Constitutional: Well-developed, well-nourished. Not diaphoretic. Head: Normocephalic and atraumatic. Mouth/Throat: Oropharynx is clear and moist. Edentulous. ETT in place. Eyes: Pupils 7 mm and unreactive bilaterally. Neck: Supple, no tracheal deviation. Cardiovascular: Tachycardic, irregular rhythm. Equal and intact distal pulses throughout. Cap refill normal. Pulmonary/Chest: Coarse breath sounds bilaterally. Abdominal: Soft. No distension. Bowel sounds present. Musculoskeletal: Trace edema in bilateral lower extremities. Neurological: GCS 6T. Withdrawing to pain in bilateral upper and lower extremities. Not posturing. Skin: Warm and dry, no rashes or pallor appreciated. No external signs of trauma. Psychiatric: Unable to assess 2/2 intubated. Vital Signs Vital Signs Date Time Temp Pulse Resp B/P Pulse Ox O2 Delivery O2 Flow Rate FiO2 03/13/17 16:00 81 20 119/50 98 Mechanical Ventilator 03/13/17 15:49 100 03/13/17 15:45 87 20 151/60 99 Mechanical Ventilator 03/13/17 15:14 36.7 85 20 205/76 99 ET Tube 03/13/17 15:08 78 16 170/71 100 ET Tube Initial VS: Reviewed Interpretation & Diagnostics Lab Results Interpretation Result Diagram: 03/13/17 1529 03/13/17 1529 Test 03/13/17 15:13 03/13/17 15:29 03/13/17 15:50 Salicylates Level < 3.0ug/mL (30-250) Acetaminophen Level < 15.0ug/mL Rx (10-25) Alcohols < 10mg/dL (0-10) White Blood Count 11.5th/mm3 (3.8-10.1) Red Blood Count 4.33mil/mm3 (3.90-5.20) Hemoglobin 13.1g/dL (12.0-15.6) Hematocrit 42.5% (35.0-46.0) Mean Corpuscular Volume 98.2fL (81-100) Mean Corpuscular Hemoglobin 30.3pg (27.0-35.0) Mean Corpuscular Hemoglobin Concent 30.8% (32.0-37.0) Red Cell Distribution Width 13.6% (12.3-15.4) Platelet Count 224bil/L (150-400) Neutrophils (%) (Auto) 35.3% (40-74) Lymphocytes (%) (Auto) 50.3% (14-46) Monocytes (%) (Auto) 11.9% (4-12) Eosinophils (%) (Auto) 1.7% (0-5) Basophils (%) (Auto) 0.5% (0-3) Sodium Level 142mEq/L (134-144) Potassium Level 5.0mEq/L (3.5-5.2) Chloride Level 103mEq/L (97-108) Carbon Dioxide Level 25mmol/L (18-29) Blood Urea Nitrogen 22mg/dL (8-27) Creatinine 1.27mg/dL (0.57-1.00) Estimat Glomerular Filtration Rate 59mL/min (>59) Glucose Level 124mg/dL (60-99) Calcium Level 9.4mg/dL (8.5-10.1) Magnesium Level 2.1mg/dL (1.6-2.6) Total Bilirubin 0.2mg/dL (0.0-1.2) Aspartate Amino Transf (AST/SGOT) 26U/L (0-50) Alanine Aminotransferase (ALT/SGPT) 17U/L (0-32) Alkaline Phosphatase 104U/L (25-165) Troponin T < 0.010ug/L (0.0-0.011) Pro-B-Type Natriuretic Peptide 1112pg/mL (0-738) Total Protein 7.2g/dL (6.4-8.4) Albumin 4.3g/dL (3.4-5.0) Procalcitonin 0.06ng/mL (0.00-0.08) ECG Interpretation ECG Interpretation: normal sinus rhythm with a rate of [address] depressions in the anterolateral leads Time: 15:22 Interpreted by: ED physician X-Ray Chest Interpretation Chest Xray Interpretation: IMPRESSION: 1. Left basilar airspace disease may represent atelectasis, pneumonia, or aspiration. 2. Endotracheal tube is positioned approximately 2 cm above the yecenia. Dictated by: Armani Bowen M.D. on 03/13/2017 at 15:21 Approved by: Armani Bowen M.D. on 03/13/2017 at 15:22 Interpretation / Wet Read by: Interpret - Radiologist CT Head Interpretation IMPRESSION: 1. Large intraparenchymal hemorrhage centered about the brainstem and midbrain that extends into the 4th and 3rd ventricles may be related to a ruptured aneurysm given its location. This hemorrhage may be exerting mass effect on the brainstem and possible herniation within the region of the foramen magnum. CT or MR angiography of the head and neck is recommended for further evaluation. 2. Ventricular prominence may be related to the hemorrhage. Followup on subsequent imaging to exclude the possibility of developing obstructive hydrocephalus is recommended. 3. Mild chronic small vessel ischemic changes. Note: Findings were discussed with Addy Gutierrez at 1557 hours on 03/13/17. Dictated by: Armani Bowen M.D. on 03/13/2017 at 15:47 Approved by: Armani Bowen M.D. on 03/13/2017 at 15:59 Interpretation / Wet Read by: Interpret - Radiologist Procedures Intubation Intubation Procedure: Tube at 23 cm Time: 15:03 Procedure Performed by: ED physician Consent / Setup / Site Prep: No consent - emergent, Time-out performed, Oxygen administered, Pulse oximeter applied, media monitor applied, Hand hygiene observed, Stand sterile technique, Removed dentures Patient Position: Sniff position Blade / ET Tube / Route: [place] scope Procedural Sedation/Analgesia: Sedation: Etomidate ET Confirmation: Direct visualization, BS equal, CXR, Rising O2 sat Secured / Marked: ET tube device Complications: None Post-Procedure: Condition improved, Tolerated procedure well, Patient stable Re-Eval/Medical Decision Med Decision/Clinical Course 76-year-old female arriving to the ED unresponsive from clinic. Initial history is limited secondary to patient condition-per EMS report, patient was in the clinic, subsequently found unresponsive in the bathroom. Unknown if the patient fell or the circumstances surrounding this. Patient with a GCS of 7 upon arrival, subsequently intubated as per above. Emergent CT scan demonstrates an acute intraparenchymal bleed involving the brainstem and midbrain. subsequently arrived to the ED - he states that she does not think she is on any blood thinners and was normal earlier today. Discussed the patient with [facility] shortly thereafter - plan transfer by air for possible neurosurgical involvement, further evaluation and management. No further recs from [facility] at this time. Discussed this with the patient's at length, all questions answered. Source of Hx: Old records Time of Eval: 15:48 Re-Evaluation/Progress Note: Pt rechecked, who is stable. Spoke with pt's regarding pt's case. The need for transfer is discussed. The pt's understands and agrees with the plan. All questions are addressed at this time. Consultation : Call Returned at: 16:07 Note: Spoke to [facility] regarding pt's case. Pt is accepted for transfer for further evaluation by Dr. Mcclelland. Counseled Regarding: Diagnosis, Lab results, Need for transfer Discharge & Departure Primary Impression: Acute intracranial hemorrhage Additional Impressions: Parenchymal hemorrhage Unresponsive Disposition: Transfer, Acute Care Facility Discharge Condition All VS Reviewed: Yes Condition: Stable Referrals: Mio Gary MD (PCP) Crit Care Except Billable Proc Time Spent: 75-104 minutes Services Performed: Patient management by me, Time spent at bedside, Reviewing test results, Reviewing imaging, Discussing patient care, Documentation in record, Time with fam/surrogate Critical Care Notes: Please see MDM Scribe Attestation Portions of this note were transcribed by Karl Miles. I, Dr. Gutierrez personally performed the history, physical exam and medical decision-making; I reviewed and confirmed the accuracy of the information in the transcribed note. Signed by: Rex Ortiz, 03/13/2017 and 1620. copies to: Mio Gary MD,Addy Navarrete MD Mar 13, 2017 15:16 KARL MILES Mar 13, 2017 15:26
--- NOTE | 2017-03-13 15:24 | DRSVH ---
PROCEDURE: X-RAY CHEST ONE VIEW, PORTABLE ([id number]) INDICATIONS: ET TUBE PLACEMENT/respiratory failure TECHNIQUE: One view of the chest was acquired. COMPARISON: [facility], CR, XR CHEST 2VW, 12/04/2016, 18:39. FINDINGS: Surgical changes and devices: An endotracheal tube is identified overlying the trachea that is positi oned approximately 2.3 cm above the yecenia. Lungs and pleura: Moderate air space disease within the infrahilar region on the left is identified t hat is new since the prior study. No large effusion or pneumothorax is identified. Mediastinum: Mediastinal contours appear normal. Heart size is normal. There is aortic atheroscler osis. Bones and chest wall: No suspicious bony lesions. Overlying soft tissues appear unremarkable. IMPRESSION: 1. Left basilar airspace disease may represent atelectasis, pneumonia, or aspiration. 2. Endotracheal tube is positioned approximately 2 cm above the yecenia. Dictated by: Armani Bowen M.D. on 03/13/2017 at 15:21 Approved by: Armain Bowen M.D. on 03/13/2017 at 15:22
[2017-03-13 15:32] LABS: BASOPHILS % (AUTO) 0.5 % (0-3); EOSINOPHILS % (AUTO) 1.7 % (0-5); MONOCYTES % (AUTO) 11.9 % (4-12); Mean Corpuscular Hemoglobin 30.3 pg (27.0-35.0); Mean Corpuscular Volume 98.2 fL (81-100); NEUTROPHILS % (AUTO) 35.3 % (40-74); Platelet Count 224 bil/L (150-400)
[2017-03-13 15:54] LABS: Magnesium 2.1 mg/dL (1.6-2.6); TROPONIN T < 0.010 ug/L (0.0-0.011)
[2017-03-13] MEDS ORDERED: NiCARdipine 25 mg/250 mL D5W IV SCH ×2 (15:55)
--- NOTE | 2017-03-13 16:00 | DRSVH ---
PROCEDURE: CT BRAIN WITHOUT CONTRAST ([id number]) INDICATIONS: unresponsive TECHNIQUE: Noncontrast 4.5 mm thick angled axial sections acquired from the foramen magnum to the vertex, with c oronal reformats. COMPARISON: None. FINDINGS: Image quality: Diagnostic. Brain: There is a moderate to large posterior fossa intraparenchymal and intraventricular hemorrhage that measures at least 3.8 x 5.7 x 3.1 cm. Hemorrhage is seen within the 4th ventricle and the 3rd v entricle. The No extra-axial fluid collection is identified. There is no midline shift or mass effe ct. The orbits are grossly unremarkable. No large areas of diffusely decreased attenuation are evident within the brain to suggest diffuse cer ebral edema. Scattered small areas of low attenuation are seen within the periventricular white bertha er of the supratentorial brain. The cortical sulci are age-appropriate. The ventricles are slightly prominent, particularly involvin g the lateral ventricles. Bones: Calvarium and visualized facial bones are grossly intact. The imaged paranasal sinuses and m astoid air cells are clear. Other: Endotracheal tube is seen within the patient's mouth. IMPRESSION: 1. Large intraparenchymal hemorrhage centered about the brainstem and midbrain that extends into the 4th and 3rd ventricles may be related to a ruptured aneurysm given its location. This hemorrhage ma y be exerting mass effect on the brainstem and possible herniation within the region of the foramen m agnum. CT or MR angiography of the head and neck is recommended for further evaluation. 2. Ventricular prominence may be related to the hemorrhage. Followup on subsequent imaging to exclu de the possibility of developing obstructive hydrocephalus is recommended. 3. Mild chronic small vessel ischemic changes. Note: Findings were discussed with Addy Gutierrez at 1557 hours on 03/13/17. Dictated by: Armani Bowen M.D. on 03/13/2017 at 15:47 Approved by: Armani Bowen M.D. on 03/13/2017 at 15:59
[2017-03-13] MEDS ORDERED: Norepinephrine 8,000 mCg/250 mL NS Premix IV ONE (16:16)
[2017-03-13 16:30] LABS: APPEARANCE,URINE CLEAR (CLEAR,HAZY); COLOR,URINE YELLOW (YELLOW); OCCULT BLOOD,URINE SMALL (NEGATIVE); PH,URINE 6.5 (5.0-8.0); UROBILINOGEN,URINE NORMAL (NORMAL)
== END 2017-03-13 16:49 | disposition short-term general hospital (02) ==
LOC: EDUNIT# 14:54 → SED 14:54 → EDBD 14:54 → SED 16:49
DX: I62.9 Nontraumatic intracranial hemorrhage, unspecified (principal); R40.4 Transient alteration of awareness; I11.9 Hypertensive heart disease without heart failure; I48.91 Unspecified atrial fibrillation; J44.9 Chronic obstructive pulmonary disease, unspecified; E07.9 Disorder of thyroid, unspecified; F17.200 Nicotine dependence, unspecified, uncomplicated; Z79.82 Long term (current) use of aspirin; Z88.2 Allergy status to sulfonamides
CPT/HCPCS: 31500; 36415; 70450; 71010; 80053; 81000; 82948; 83605; 83735; 83880; 84145; 84484; 85025; 87040; 87077; 93005; 94002; 94799; 99291; 99292; G0480; J0330; J7030